=== PATIENT | female | born 1940 | race Caucasian/White ===

== ENCOUNTER → 2022-10-25 | Outpatient (CLI) | payer MEDICARE, BC ==
--- NOTE | 2022-10-25 16:50 | CT ---
EXAMINATION TYPE: CT chest wo/w con DATE OF EXAM: 10/25/2022 COMPARISON: None HISTORY: lung nodule CT DLP: 264.80 mGycm, Automated exposure control for dose reduction was used. CONTRAST: Performed injected with 70 mL of Isovue 300. TECHNIQUE: Axial images were obtained at 5 mm thick sections. Reconstructed images are reviewed on [employer] computer in the coronal plane. Postcontrast imaging is performed. FINDINGS: Thyroid is poorly visualized. Emphysematous changes are evident. There are scattered areas of pneumonitis within the posterior righ t apex. Punctate nodules in the periphery of the right mid lung. Series 8 image 25. Multiple small lymph nodes are present. No enlarged lymphadenopathy is evident. The ascending aorta diameter at the level of the main pulmonary artery is 3.0 cm. The main pulmonary artery diameter at the bifurcation is 2.1 cm. Mild coronary artery calcification is present. Limited CT sections are obtained through the upper abdomen. Small hiatal hernia is present. Peripelvi c cysts may be present on the left. IMPRESSIONS: 1. Punctate nodule peripheral right upper lung field. Follow-up exam in 6 months can be performed. 2. Scattered small mediastinal lymph nodes.
== END | disposition home or self-care (01) ==
LOC: RADCTMAIN 10:32
PROVIDERS: ATTEND Family Medicine
DX: I10 Essential (primary) hypertension (principal); R91.1 Solitary pulmonary nodule
CPT/HCPCS: 82565; 84520; 71270; 36415; Q9967